=== PATIENT | female | born 1980 | race Caucasian/White ===

== ENCOUNTER 2018-03-18 03:00 | Emergency (ER) | payer MEDICAID ==
[~2018-03-18] VITALS: Ht 154.9 cm; Wt 65.0 kg
[~2018-03-18 03:00] MED LIST: ADVIL; ALBU18HF INH; FERR325T63 PO; IBUP100O24 PO; INHA1EAC; LACT1CAP35 PO; MULT-321 PO; OXYC-302 PO; OXYC1TAB8 PO; POLY17PO5 PO
[2018-03-18] MEDS ORDERED: IBUPROFEN 200 MG TABLET PO ONE (03:30)
[2018-03-18] MEDS ORDERED: IBUPROFEN 200 MG TABLET ONE (04:09)
[2018-03-18 04:58] VITALS: BP 117/79
== END 2018-03-18 05:01 | disposition home or self-care (01) ==
LOC: ED 04:50
DX: M79.671 Pain in right foot (principal); F17.200 Nicotine dependence, unspecified, uncomplicated
CPT/HCPCS: 99284

== ENCOUNTER 2018-04-23 22:18 | Emergency (ER) | payer SELFPAY ==
[~2018-04-23] VITALS: Ht 154.9 cm; Wt 59.1 kg
[2018-04-23 22:20] VITALS: BP 121/84
[2018-04-23] MEDS ORDERED: BACITRACIN ZINC OINT 500U/GM, 0.9 GM ONE (23:53)
[2018-04-23] MEDS ORDERED: IBUPROFEN 200 MG TABLET ONE (23:54)
[2018-04-24] MEDS ORDERED: BACITRACIN ZINC OINT 500U/GM, 0.9 GM TP PRN
[2018-04-24] MEDS ORDERED: IBUPROFEN 200 MG TABLET PO ONE
== END 2018-04-24 00:19 | disposition home or self-care (01) ==
LOC: ED 23:59
DX: M79.675 Pain in left toe(s) (principal); L97.521 Non-pressure chronic ulcer of other part of left foot limited to breakdown of skin; Z76.0 Encounter for issue of repeat prescription; F15.10 Other stimulant abuse, uncomplicated; F17.200 Nicotine dependence, unspecified, uncomplicated; Z90.89 Acquired absence of other organs
CPT/HCPCS: 99282

== ENCOUNTER 2018-07-02 06:11 | Emergency (ER) | payer MEDICAID ==
[~2018-07-02] VITALS: Ht 154.9 cm; Wt 60.1 kg
[2018-07-02 06:14] VITALS: BP 131/72
[2018-07-02 07:03] LABS: CULTURE INDICATED? YES; MICROSCOPIC INDICATED
[2018-07-02 07:04] LABS: HCG UR SG 1.022 (1.003-1.030)
[2018-07-02] MEDS ORDERED: CEFTRIAXONE 250 MG ONE (08:26)
[2018-07-02] MEDS ORDERED: AZITHROMYCIN 500 MG TABLET ONE (08:26)
[2018-07-02] MEDS ORDERED: CEFTRIAXONE 250 MG IM ONE (08:30)
[2018-07-02] MEDS ORDERED: AZITHROMYCIN 500 MG TABLET PO ONE (08:30)
== END 2018-07-02 09:00 | disposition home or self-care (01) ==
LOC: ED 06:30
DX: B27.99 Infectious mononucleosis, unspecified with other complication (principal); A64 Unspecified sexually transmitted disease; Z90.89 Acquired absence of other organs
CPT/HCPCS: 36415; 81001; 81025; 86308; 87081; 87086; 87147; 87491; 87591; 87880; 96372; 99284; J0696

== ENCOUNTER 2018-11-22 12:19 | Emergency (ER) | payer MEDICAID ==
[~2018-11-22] VITALS: Ht 154.9 cm; Wt 66.0 kg
[2018-11-22] MEDS ORDERED: MORPHINE SULFATE 4 MG/ML, 1ML ONE (12:54)
[2018-11-22] MEDS ORDERED: ONDANSETRON 2MG/ML, 2ML ONE (12:54)
[2018-11-22] MEDS ORDERED: MORPHINE SULFATE 4 MG/ML, 1ML IVPush ONE (13:00)
[2018-11-22] MEDS ORDERED: ONDANSETRON 2MG/ML, 2ML IVPush ONE (13:00)
[2018-11-22] MEDS ORDERED: SODIUM CHLORIDE FLUSH 10ML SYR IVF ONE (13:00)
--- NOTE | 2018-11-22 13:04 | NUR ---
PT HERE FOR LOWER ABD PAIN. PT REPORTS CAME ON ALL OF A SUDDEN. PT ROLLIGN IN EBD. HELD STILL FOR PIV. PT GIVEN PAIN MEDICATIONS IN ORDER TO COMPLETE ASSESSMENT. PT DENIES ANY TRUAMA. SIGNIFICANT OTHER IS IN ROOM AND VERY OVERBARING. PT DENIES V/D AT THIS TIME. PT CONNECTED TO MONITORS AND PT NOW TO US.
[2018-11-22 13:08] LABS: MEAN CORPUSCULAR HEMOGLOBIN 17.6 pg (27.0-34.8); MEAN PLATELET VOLUME 7.7 fL (7.4-10.4); PLATELET COUNT 289 x10^3/uL (130-400); RED BLOOD COUNT 4.64 x10^6/uL (3.82-5.3); RED CELL DISTRIBUTION WIDTH 20.7 % (9.6-15.2)
[2018-11-22 13:10] LABS: BASOPHILS # (AUTO) 0.05 x10^3/uL (0-0.1); BASOPHILS % (AUTO) 1 % (0-1); EOSINOPHILS # (AUTO) 0.01 x10^3/uL (0-0.4); EOSINOPHILS % (AUTO) 0 % (1-7); LYMPHOCYTES # (AUTO) 2.49 x10^3/uL (1-3.4); LYMPHOCYTES % (AUTO) 27 % (22-44); MD MORPH REVIEW ONLY; MONOCYTES # (AUTO) 0.98 x10^3/uL (0.2-0.8); MONOCYTES % (AUTO) 11 % (2-9); NEUTROPHILS # (AUTO) 5.67 x10^3/uL (1.8-6.8); NEUTROPHILS % (AUTO) 62 % (42-75)
[2018-11-22 13:11] LABS: MEAN CORPUSCULAR HGB CONC 29.9 g/dL (32.4-35.8)
[2018-11-22 13:16] LABS: ALANINE AMINOTRANSFERASE 51 U/L (12-78); ALBUMIN 3.3 g/dL (3.4-5.0); ANION GAP 7 mmol/L (5-15); CALCIUM 8.6 mg/dL (8.5-10.1); CHLORIDE 109 mmol/L (98-107); CREATININE 0.79 mg/dL (0.55-1.02)
[2018-11-22 13:20] LABS: ALKALINE PHOSPHATASE 109 U/L (45-117); BILIRUBIN,TOTAL 0.3 mg/dL (0.2-1.0); TOTAL PROTEIN 8.3 g/dL (6.4-8.2)
[2018-11-22 14:19] LABS: <PLATELET ESTIMATE> ADEQUATE; <PLT MORPHOLOGY> NORMAL PLT MORPH; ANISOCYTOSIS 2+; HYPOCHROMIA 1+; MICROCYTOSIS 3+; OVALOCYTES 1+
--- NOTE | 2018-11-22 15:19 | NUR ---
PT RESTING IN BED. IN DEEP SLEEP.
[2018-11-22 15:47] LABS: MICROSCOPIC NOT IND
[2018-11-22 15:50] LABS: CULTURE INDICATED? NO
--- NOTE | 2018-11-22 16:02 | NUR ---
Patient/Caregiver given discharge instructions and they have confirmed that they understand the instructions. Patient ambulatory with steady gait.
[2018-11-22] MEDS ORDERED: KETOROLAC 30 MG/1 ML ONE (16:12)
[2018-11-22] MEDS ORDERED: KETOROLAC 30 MG/1 ML IVPush ONE (16:30)
--- NOTE | 2018-11-22 16:32 | NUR ---
PT MEDICATED FOR PAIN.
[2018-11-22] MEDS ORDERED: OMNIPAQUE 350 MG/ML, 100ML BOTTLE ONE (16:43)
[2018-11-22 16:52] VITALS: BP 124/84
--- NOTE | 2018-11-22 17:09 | NUR ---
INFORMED OF RESULTS. ASKED FOR FEMALE CHAPARONE TO BEDSIDE TO PERFORM PELVIC EXAM. ROMÁN MASCORRO ASSITED MF.
--- NOTE | 2018-11-22 17:18 | NUR ---
FIRST CONTACT WITH PT. THIS RN BEDSIDE TO ASSIST DR. ROMAN IN PELVIC EXAM PROCEDURE. PT TOLERATED PROCEDURE WITH NO COMPLICATIONS. ALSO BEDSIDE.
--- NOTE | 2018-11-22 18:05 | NUR ---
Patient/Caregiver given discharge instructions and they have confirmed that they understand the instructions. Patient ambulatory with steady gait.
== END 2018-11-22 18:07 | disposition home or self-care (01) ==
LOC: ED 13:53
DX: T19.2XXA Foreign body in vulva and vagina, initial encounter (principal); F17.210 Nicotine dependence, cigarettes, uncomplicated; Z72.9 Problem related to lifestyle, unspecified; Z86.14 Personal history of Methicillin resistant Staphylococcus aureus infection; Z90.89 Acquired absence of other organs; X58.XXXA Exposure to other specified factors, initial encounter; Y93.89 Activity, other specified; Y92.89 Other specified places as the place of occurrence of the external cause; Y99.8 Other external cause status
CPT/HCPCS: 36415; 74177; 76830; 80053; 81003; 84703; 85025; 96374; 96375; 99284; J1885; J2405; Q9967

== ENCOUNTER 2019-01-30 17:14 | Emergency (ER) | payer MEDICAID ==
--- NOTE | 2019-01-30 17:42 | NUR ---
NO ANSWER FROM TRIAGE
--- NOTE | 2019-01-30 17:50 | NUR ---
NO ANSWER FROM TRIAGE
--- NOTE | 2019-01-30 17:57 | NUR ---
NO ANSWER FROM TRIAGE
== END 2019-01-30 17:59 | disposition left against medical advice (07) ==
LOC: ED 17:53
DX: R42 Dizziness and giddiness (principal); Z53.21 Procedure and treatment not carried out due to patient leaving prior to being seen by health care provider

== ENCOUNTER 2020-09-12 16:04 | Emergency (ER) | payer MEDICAID ==
[~2020-09-12] VITALS: Ht 154.9 cm; Wt 59.7 kg
[2020-09-12 16:46] LABS: BASOPHILS % (AUTO) 1 % (0-1); EOSINOPHILS % (AUTO) 1 % (1-7); LYMPHOCYTES % (AUTO) 25 % (22-44); MEAN CORPUSCULAR HEMOGLOBIN 18.7 pg (27.0-34.8); MEAN CORPUSCULAR HGB CONC 30.8 g/dL (32.4-35.8); MEAN PLATELET VOLUME 8.6 fL (7.4-10.4); MONOCYTES % (AUTO) 9 % (2-9); NEUTROPHILS % (AUTO) 64 % (42-75); PLATELET COUNT 347 x10^3/uL (130-400); RED BLOOD COUNT 4.83 x10^6/uL (3.82-5.3); RED CELL DISTRIBUTION WIDTH 20.5 % (9.6-15.2)
--- NOTE | 2020-09-12 16:48 | NUR ---
PT AMBULATED STEADILY FROM TRIAGE TO ROOM. PT REPORTS HAVING HIT HEAD ON A GARAGE DOOR AND IS NOW CONCERNED WITH A R SCALP LACERATION. NO BLEEDING OR OPEN WOUND NOTED. PT ALSO ARRIVES WITH SIGNIFICANT RIGHT PERIORBITAL EDEMA AND BLURRED VISION. UNKNOWN ONSET. NO DRAINAGE NOTED. DENIES FEVER/DRAINAGE/TRAUMA. SO AT BEDSIDE. AWAITING ORDERS
[2020-09-12 16:53] LABS: ALANINE AMINOTRANSFERASE 31 U/L (12-78); ALBUMIN 3.1 g/dL (3.4-5.0); ANION GAP 5 mmol/L (5-15); CALCIUM 8.8 mg/dL (8.5-10.1); CHLORIDE 108 mmol/L (98-107); CREATININE 0.87 mg/dL (0.55-1.02)
[2020-09-12 16:54] LABS: ALKALINE PHOSPHATASE 97 U/L (45-117); BILIRUBIN,TOTAL 0.3 mg/dL (0.2-1.0); TOTAL PROTEIN 8.5 g/dL (6.4-8.2)
[2020-09-12] MEDS ORDERED: SODIUM CHLORIDE FLUSH 10ML SYR IVF ONE (17:00)
[2020-09-12 17:13] LABS: ANISOCYTOSIS 2+; MD MORPH REVIEW ONLY; MICROCYTOSIS 2+
[2020-09-12 17:14] LABS: HYPOCHROMIA 1+; OVALOCYTES 1+; POLYCHROMASIA 1+
[2020-09-12 17:15] LABS: <PLATELET ESTIMATE> ADEQUATE; <PLT MORPHOLOGY> NORMAL PLT MORPH
[2020-09-12] MEDS ORDERED: MORPHINE SULFATE 4 MG/ML, 1ML IVPush PRN (17:30)
[2020-09-12] MEDS ORDERED: ONDANSETRON 2MG/ML, 2ML IVPush ONE (18:00)
[2020-09-12] MEDS ORDERED: PIPERACILLIN/TAZO/PMX 3.375GM 50 ML IV ONE (18:00)
[2020-09-12] MEDS ORDERED: MORPHINE SULFATE 4 MG/ML, 1ML ONE (18:07)
[2020-09-12] MEDS ORDERED: ONDANSETRON 2MG/ML, 2ML ONE (18:07)
[2020-09-12] MEDS ORDERED: PIPERACILLIN/TAZO/PMX 3.375GM 50 ML ONE (18:07)
--- NOTE | 2020-09-12 19:00 | NUR ---
REPORT TO SUBHA FRANZ.
[2020-09-12 20:25] VITALS: BP 134/75
== END 2020-09-12 20:28 | disposition home or self-care (01) ==
LOC: ED 20:22
DX: L02.811 Cutaneous abscess of head [any part, except face] (principal); L03.213 Periorbital cellulitis; Z90.89 Acquired absence of other organs; F17.200 Nicotine dependence, unspecified, uncomplicated
CPT/HCPCS: 36415; 70450; 70487; 80053; 83605; 84145; 85025; 87040; 96365; 96375; 99285; J2270; J2405; J2543

== ENCOUNTER 2020-10-08 17:12 | Emergency (ER) | payer MEDICAID ==
[~2020-10-08] VITALS: Ht 154.9 cm; Wt 60.5 kg
[2020-10-08 17:26] VITALS: BP 148/76
[2020-10-08] MEDS ORDERED: CEPHALEXIN 500 MG CAPSULE ONE (17:44)
[2020-10-08] MEDS ORDERED: HYDROcodone/APAP 5/325 TABLET ONE (17:44)
[2020-10-08] MEDS ORDERED: IBUPROFEN 600 MG TABLET ONE (17:44)
[2020-10-08] MEDS ORDERED: SULFAMETH./TRIMETHOPRIM DS 800MG/160MG TABLET ONE (17:44)
[2020-10-08] MEDS ORDERED: DIPH,PERTUSS(ACELL),TET VAC/PF 0.5 ML IM-VACC ONE ×2 (17:45→18:00)
[2020-10-08] MEDS ORDERED: LIDOCAINE-MPF 1%, 5ML ONE (17:51)
[2020-10-08] MEDS ORDERED: CEPHALEXIN 500 MG CAPSULE PO ONE (18:00)
[2020-10-08] MEDS ORDERED: SULFAMETH./TRIMETHOPRIM DS 800MG/160MG TABLET PO ONE (18:00)
[2020-10-08] MEDS ORDERED: HYDROcodone/APAP 5/325 TABLET PO ONE (18:00)
[2020-10-08] MEDS ORDERED: LIDOCAINE-MPF 1%, 5ML INFIL ONE (18:00)
[2020-10-08] MEDS ORDERED: IBUPROFEN 600 MG TABLET PO ONE (18:00)
--- NOTE | 2020-10-08 18:54 | NUR ---
Patient given discharge instructions and they have confirmed that they understand the instructions. Patient ambulatory with steady gait.
== END 2020-10-08 18:56 | disposition home or self-care (01) ==
LOC: ED 18:06
DX: L02.512 Cutaneous abscess of left hand (principal); F17.210 Nicotine dependence, cigarettes, uncomplicated; Z90.89 Acquired absence of other organs
CPT/HCPCS: 10060; 90471; 90715; 99284; 99406

== ENCOUNTER 2021-05-01 19:21 | Emergency (ER) | payer MEDICAID ==
[~2021-05-01 19:21] MED LIST changes: -IBUP100O24 PO; -OXYC-302 PO; +OXYC1TAB14 PO; +[UNRECOGNIZED DRUG - CODE] PO
--- NOTE | 2021-05-01 19:59 | NUR ---
nil x 1
--- NOTE | 2021-05-01 20:15 | NUR ---
nil x 2
--- NOTE | 2021-05-01 20:28 | NUR ---
nil x 3
== END 2021-05-01 20:30 | disposition left against medical advice (07) ==
LOC: ED 20:28
DX: M25.559 Pain in unspecified hip (principal); Z53.21 Procedure and treatment not carried out due to patient leaving prior to being seen by health care provider

== ENCOUNTER 2021-06-01 18:43 | Emergency (ER) | payer MEDICAID ==
[~2021-06-01] VITALS: Ht 154.9 cm; Wt 62.9 kg
[~2021-06-01 18:43] MED LIST changes: +OXYC1TAB12 PO; -OXYC1TAB14 PO; +[UNRECOGNIZED DRUG - CODE] PO; -[UNRECOGNIZED DRUG - CODE] PO
[2021-06-01 18:45] VITALS: BP 162/111
[2021-06-01 19:18] LABS: ALBUMIN 3.2 g/dL (3.4-5.0); ANION GAP 6 mmol/L (5-15); CALCIUM 8.8 mg/dL (8.5-10.1); CHLORIDE 106 mmol/L (98-107); CREATININE 0.65 mg/dL (0.55-1.02)
[2021-06-01 19:24] LABS: BASOPHILS % (AUTO) 1 % (0-1); EOSINOPHILS % (AUTO) 1 % (1-7); LYMPHOCYTES % (AUTO) 47 % (22-44); MEAN CORPUSCULAR HEMOGLOBIN 18.7 pg (27.0-34.8); MEAN CORPUSCULAR HGB CONC 30.6 g/dL (32.4-35.8); MEAN PLATELET VOLUME 8.3 fL (7.4-10.4); MONOCYTES % (AUTO) 10 % (2-9); NEUTROPHILS % (AUTO) 41 % (42-75); PLATELET COUNT 352 x10^3/uL (130-400); RED BLOOD COUNT 4.58 x10^6/uL (3.82-5.3); RED CELL DISTRIBUTION WIDTH 20.7 % (9.6-15.2)
[2021-06-01 19:50] LABS: ANISOCYTOSIS 2+; HYPOCHROMIA 2+; MICROCYTOSIS 2+; OVALOCYTES 1+; POLYCHROMASIA 1+
[2021-06-01 19:51] LABS: <PLATELET ESTIMATE> ADEQUATE; <PLT MORPHOLOGY> NORMAL PLT MORPH
--- NOTE | 2021-06-01 20:13 | NUR ---
urine sent to lab
[2021-06-01 20:20] LABS: MICROSCOPIC AUTO
[2021-06-01 20:21] LABS: FREE T4 (FREE THYROXINE) 0.66 ng/dL (0.76-1.46)
--- NOTE | 2021-06-01 21:32 | NUR ---
Patient/Caregiver given discharge instructions and they have confirmed that they understand the instructions. Patient ambulatory with steady gait. NAD, all questions answered appropriately, denies additional needs at this time. No personal belongings left in room after discharge.
== END 2021-06-01 21:33 | disposition home or self-care (01) ==
LOC: ED 19:39
DX: E03.9 Hypothyroidism, unspecified (principal); R11.2 Nausea with vomiting, unspecified; R42 Dizziness and giddiness; F17.210 Nicotine dependence, cigarettes, uncomplicated
CPT/HCPCS: 36415; 80048; 81001; 82040; 84439; 84443; 84703; 85025; 87086; 93005; 99284; 99406